=== PATIENT | female | born 1970 | race Hispanic/Latino ===

== ENCOUNTER → 2020-03-18 | Day surgery (SDC) | payer OTHER ==
[~2020-03-18] MED LIST: DEXAMETHASONE SOD PHOS INJ 4 MG/ML VIAL ONE; EPHEDRINE SULFATE INJ 50 MG/ML VIAL ONE; EPINEPHRINE HCL 1:1000 1ML 1 MG/ML AMP ONE; FENTANYL CITRATE/PF 100MCG/2 ML INJ ONE; LIDOCAINE 2%/ EPINEPHRINE 20ML MDV ONE; LIDOCAINE HCL 2% LOCAL INJ 5 ML SDV VIAL INJ ONE; MIDAZOLAM HCL 2 MG/2 ML VIAL ONE; ONDANSETRON HCL INJ 2MG/ML 2ML 2 MG/ML VIAL ONE; PROPOFOL IV EMULSION 10 MG/ML 20 ML VIAL ONE; ROCURONIUM BROMIDE 10 MG/ML 5ML VIAL IV ONE; SEVOFLURANE INHAL SOLN 250 ML PEN BTL ONE; SUGAMMADEX SODIUM 200 MG/2 ML VIAL IV ONE; ZOLOFT50 MG PO
[2020-03-18 15:00] VITALS: BP 134/83
== END | disposition home or self-care (01) ==
LOC: OR 03-17 06:00 → EDSEX 03-17 07:00 → OR 10:43
PROVIDERS: ATTEND Otolaryngology Otolaryngology/Facial Plastic Surgery
DX: M95.0 Acquired deformity of nose (principal); J34.89 Other specified disorders of nose and nasal sinuses; J34.2 Deviated nasal septum; J32.0 Chronic maxillary sinusitis; G47.33 Obstructive sleep apnea (adult) (pediatric); Z68.41 Body mass index [BMI] 40.0-44.9, adult
CPT/HCPCS: 30465; 30520; 88300; J0171; J1100; J2001 ×2; J2250; J2405; J2704; J3010